=== PATIENT | male | born 1995 ===

== ENCOUNTER 2017-07-26 10:16 | Emergency (ER) | payer SELFPAY ==
[2017-07-26 10:31] VITALS: RESP 18; O2SAT 98
[2017-07-26] MEDS ORDERED: Sodium Chloride 0.9% 1,000 ML IV ONE (10:45)
[2017-07-26] MEDS ORDERED: Sodium Chloride 0.9% 1,000 ML ONE (10:56)
--- NOTE | 2017-07-26 10:56 | C.PDOC ---
History Of Present Illness 22 y/o male with PMhx of Kidney stones presents to ED with complaints of left flank pain and intermittent fever for 3 days. Patient recently [place] in [place] and came to ED with concerns of having another kidney stone. Patient denies dysuria, hematuria, abdominal pain or any other complaints at this time. Time Seen by Provider: 07/26/17 10:37 Chief Complaint (Nursing): Abdominal Pain History Per: Patient History/Exam Limitations: no limitations Onset/Duration Of Symptoms: Days Current Symptoms Are (Timing): Still Present Past Medical History Reviewed: Historical Data, Nursing Documentation, Vital Signs Vital Signs: Last Vital Signs Temp 98.8 F 07/26/17 12:45 Pulse 84 07/26/17 12:45 Resp 18 07/26/17 12:45 BP 126/70 07/26/17 12:45 Pulse Ox 98 07/26/17 12:48 - Medical History PMH: Kidney Stones Surgical History: No Surg Hx Family History: States: No Known Family Hx - Social History Hx Alcohol Use: No Hx Substance Use: No - Immunization History Hx Tetanus Toxoid Vaccination: No Hx Influenza Vaccination: Yes Hx Pneumococcal Vaccination: No Review Of Systems Constitutional: Positive for: Fever. Negative for: Chills Gastrointestinal: Negative for: Nausea, Vomiting, Abdominal Pain Musculoskeletal: Positive for: Other (Flank pain). Negative for: Back Pain Skin: Negative for: Rash Neurological: Negative for: Weakness, Numbness Physical Exam - Physical Exam Appears: Non-toxic, No Acute Distress Skin: Normal Color, Warm, Dry, No Rash Head: Atraumatic, Normacephalic Eye(s): bilateral: Normal Inspection Oral Mucosa: Moist Neck: Normal ROM, Supple Cardiovascular: Rhythm Regular Respiratory: Normal Breath Sounds, No Rales, No Rhonchi, No Wheezing Gastrointestinal/Abdominal: Soft, No Tenderness, No Guarding, No Rebound Back: CVA Tenderness (left), No Paraspinal Tenderness Extremity: Normal ROM, Capillary Refill (<2 seconds) Neurological/Psych: Oriented x3 ED Course And Treatment - Laboratory Results Result Diagrams: 07/26/17 11:01 07/26/17 11:01 Lab Interpretation: No Acute Changes O2 Sat by Pulse Oximetry: 98 (RA) Pulse Ox Interpretation: Normal - CT Scan/US No standard instances Other Rad Studies (CT/US): Read By Radiologist, Radiology Report Reviewed CT/US Interpretation: FINDINGS: There is limited evaluation of the solid organs without the administration of IV contrast. LOWER THORAX: No visible consolidation, pleural effusion, or pneumothorax. LIVER: Unremarkable unenhanced appearance. GALLBLADDER AND BILE DUCTS: Unremarkable unenhanced appearance. PANCREAS: Unremarkable unenhanced appearance. SPLEEN: Unremarkable unenhanced appearance. ADRENALS: Unremarkable unenhanced appearance. KIDNEYS AND URETERS: No hydronephrosis or obstructing renal calculus. Punctate nonobstructing bilateral renal calculi. BLADDER: The urinary bladder appears unremarkable. REPRODUCTIVE: Unremarkable. APPENDIX: The appendix is not clearly identified. No secondary signs of acute appendicitis. BOWEL: The stomach is nondistended. Lack of oral contrast limits evaluation for bowel pathology. The bowel loops appear within normal limits of caliber without evidence of intestinal obstruction. Moderate constipation. PERITONEUM: No significant free fluid. No definite free air. LYMPH NODES: No bulky lymphadenopathy identified. VASCULATURE: No aortic aneurysm. BONES: No acute osseous abnormality is detected. OTHER FINDINGS: None. IMPRESSION: Bilateral punctate nonobstructing renal calculi. No hydronephrosis or obstructing renal calculus identified. Moderate constipation. Progress Note: Treated with ZIVF NSS and toradol. On re-evaluation abdomen soft in no distress. Instructed to follow up with urology for further evaluation. Discharged in stable condition Reassessment Condition: Improved Medical Decision Making Medical Decision Making: Plan: CT abdomen/pelvis, Blood work, UA, Toradol ordered Disposition Counseled Patient/Family Regarding: Studies Performed, Diagnosis, Need For Followup, Rx Given - Disposition Referrals: [facility] [Outside] [facility] [employer] [facility] [Outside] Luz Elena Hernandez MD [Staff Provider] - Disposition: HOME/ ROUTINE Disposition Time: 12:50 Condition: STABLE Prescriptions: Naproxen [Naprosyn] 1 tab PO BID PRN #25 tab PRN Reason: Pain Instructions: Acute Hematuria (ED) Forms: [facility] (South African), Work Excuse - POA Present On Arrival: None - Clinical Impression Clinical Impression: Flank pain - 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 - Scribe Statement The provider has reviewed the documentation as recorded by the Rica Eduardo All medical record entries made by the Rica were at my direction and personally dictated by me. I have reviewed the chart and agree that the record accurately reflects my personal performance of the history, physical exam, medical decision making, and the department course for this patient. I have also personally directed, reviewed, and agree with the discharge instructions and disposition.
[2017-07-26 11:07] LABS: BASO % 0.3 % (0.0-2.0); EOS # 0.2 K/uL (0.0-0.7); EOS % 0.9 % (0.0-4.0); HEMOGLOBIN 16.5 g/dL (12.0-18.0); LYMPH # 0.9 K/uL (1.0-4.3); LYMPH % 5.2 % (20.0-40.0); MEAN CORPUSCULAR HEMOGLOBIN 30.2 pg (27.0-31.0); MEAN CORPUSCULAR HGB CONC 33.6 g/dL (33.0-37.0); MEAN PLATELET VOLUME 9.6 fL (7.2-11.7); MONO # 1.2 K/uL (0.0-0.8); MONO % 6.8 % (0.0-10.0); NEUT # 14.7 K/uL (1.8-7.0); NEUT % 86.8 % (50.0-75.0); PLATELET COUNT 208 K/uL (130-400); RBC 5.48 Mil/uL (4.40-5.90); RED CELL DISTRIBUTION WIDTH 14.1 % (11.5-14.5); WHITE BLOOD COUNT 16.9 K/uL (4.8-10.8)
[2017-07-26 11:11] LABS: URINE BACTERIA RARE (<OCC); URINE BILIRUBIN NEGATIVE (NEGATIVE); URINE BLOOD 3+ (NEGATIVE); URINE CLARITY Hazy (Clear); URINE COLOR Yellow (YELLOW); URINE GLUCOSE (UA) NORMAL (Normal); URINE LEUKOCYTE ESTERASE NEG Leu/uL (Negative); URINE NITRATE NEGATIVE (NEGATIVE); URINE PROTEIN 1+ mg/dL (NEGATIVE)
[2017-07-26 11:17] LABS: ALB/GLOB RATIO 1.4 (1.0-2.1); ALBUMIN 4.7 g/dL (3.5-5.0); ALT/SGPT 20 U/L (21-72); AST/SGOT 21 U/L (17-59); BLOOD UREA NITROGEN 11 mg/dL (9-20); CALCIUM 8.7 mg/dl (8.6-10.4); GFR AFRICAN-AMERICAN > 60; GFR NON-AFRICAN AMERICAN > 60
[2017-07-26 12:24] LABS: BANDS 1 % (0-2); EOSINOPHIL 1 % (0-4); LYMPHOCYTE 5 % (20-40); MONOCYTE 8 % (0-10); NEUTROPHIL 85 % (50-75); PLATELET ESTIMATE NORMAL (NORMAL); TOTAL CELLS COUNTED 100
--- NOTE | 2017-07-26 12:29 | CT ---
PROCEDURE: CT Abdomen and Pelvis without Oral or IV contrast. HISTORY: Pain COMPARISON: None available TECHNIQUE: Contiguous axial images of the abdomen and pelvis. No oral or IV contrast administered. Coronal and Sagittal reformats generated and reviewed. Radiation dose: Total exam DLP = 311.06 mGy-cm. This CT exam was performed using one or more of the following dose reduction techniques: Automated exposure control, adjustment of the mA and/or kV according to patient size, and/or use of iterative reconstruction technique. FINDINGS: There is limited evaluation of the solid organs without the administration of IV contrast. LOWER THORAX: No visible consolidation, pleural effusion, or pneumothorax. LIVER: Unremarkable unenhanced appearance. GALLBLADDER AND BILE DUCTS: Unremarkable unenhanced appearance. PANCREAS: Unremarkable unenhanced appearance. SPLEEN: Unremarkable unenhanced appearance. ADRENALS: Unremarkable unenhanced appearance. KIDNEYS AND URETERS: No hydronephrosis or obstructing renal calculus. Punctate nonobstructing bilateral renal calculi. BLADDER: The urinary bladder appears unremarkable. REPRODUCTIVE: Unremarkable. APPENDIX: The appendix is not clearly identified. No secondary signs of acute appendicitis. BOWEL: The stomach is nondistended. Lack of oral contrast limits evaluation for bowel pathology. The bowel loops appear within normal limits of caliber without evidence of intestinal obstruction. Moderate constipation. PERITONEUM: No significant free fluid. No definite free air. LYMPH NODES: No bulky lymphadenopathy identified. VASCULATURE: No aortic aneurysm. BONES: No acute osseous abnormality is detected. OTHER FINDINGS: None. IMPRESSION: Bilateral punctate nonobstructing renal calculi. No hydronephrosis or obstructing renal calculus identified. Moderate constipation. Additional findings as above.
[2017-07-26 12:46] VITALS: BP 126/70; PULSE 84; TEMP 98.8
== END 2017-07-26 13:07 | disposition home or self-care (01) ==
LOC: C.ER 10:16
DX: R10.9 Unspecified abdominal pain (principal)
CPT/HCPCS: 74176; 80053; 81001; 85025; 87086; 96361; 96374; 99285; J1885; J7040

== ENCOUNTER 2018-05-14 19:34 | Emergency (ER) | payer SELFPAY ==
[2018-05-14 19:43] VITALS: BMI 27.3
[2018-05-14 19:46] VITALS: BP 133/76; PULSE 99; RESP 20; TEMP 98.4; O2SAT 99
--- NOTE | 2018-05-14 20:06 | C.PDOC ---
Time Seen by Provider: 05/14/18 19:49 Chief Complaint (Nursing): Abnormal Skin Integrity Past Medical History Vital Signs: Last Vital Signs Temp 98.4 F 05/14/18 19:46 Pulse 99 H 05/14/18 19:46 Resp 20 05/14/18 19:46 BP 133/76 05/14/18 19:46 Pulse Ox 99 05/14/18 19:46 - Medical History PMH: Kidney Stones - Social History Hx Alcohol Use: No Hx Substance Use: No - Immunization History Hx Tetanus Toxoid Vaccination: No Hx Influenza Vaccination: No Hx Pneumococcal Vaccination: No ED Course And Treatment O2 Sat by Pulse Oximetry: 99 Disposition - Disposition
--- NOTE | 2018-05-14 20:06 | C.PDOC ---
History Of Present Illness 23 y/o male presents to the ED for evaluation of a hand laceration sustained 1 hour prior to arrival. While at home taking out trash, patient tripped and fell onto a garbage bag that had glass, sustaining a large laceration to the dorsal left hand. Patient is right hand dominant. He reports being unable to extend the 2nd, 3rd, and 4th digits. Also complains of slight numbness. Time Seen by Provider: 05/14/18 19:49 Chief Complaint (Nursing): Abnormal Skin Integrity History Per: Patient History/Exam Limitations: no limitations Onset/Duration Of Symptoms: Hrs (x1) Current Symptoms Are (Timing): Still Present Location Of Injury: Left: Hand Past Medical History Reviewed: Historical Data, Nursing Documentation, Vital Signs Vital Signs: Last Vital Signs Temp 98.4 F 05/14/18 19:46 Pulse 99 H 05/14/18 19:46 Resp 20 05/14/18 19:46 BP 133/76 05/14/18 19:46 Pulse Ox 99 05/14/18 19:46 - Medical History PMH: No Chronic Diseases, Kidney Stones Other Surgeries: Tendon surgery in the LEft hand Family History: States: No Known Family Hx - Social History Hx Alcohol Use: No Hx Substance Use: No - Immunization History Hx Tetanus Toxoid Vaccination: No Hx Influenza Vaccination: No Hx Pneumococcal Vaccination: No Review Of Systems Except As Marked, All Systems Reviewed And Found Negative. Constitutional: Negative for: Fever Musculoskeletal: Positive for: Hand Pain Skin: Positive for: Lesions (to dorsal left hand) Neurological: Positive for: Weakness (difficulty moving left digits), Numbness. Negative for: Other (tingling) Physical Exam - Physical Exam Appears: Non-toxic, No Acute Distress Skin: Warm, Dry, No Rash Head: Atraumatic, Normacephalic Eye(s): bilateral: Normal Inspection, PERRL, EOMI Chest: Symmetrical Respiratory: No Accessory Muscle Use Extremity: No Normal ROM (Unable to extend the 2nd, 3rd, 4th left digits; Full flexion and extension of the left thumb), Capillary Refill (less than 2 sec), No Swelling, Other (2 x 8 cm large laceration to the dorsum of left hand) Pulses: Left Radial: Normal, Right Radial: Normal Neurological/Psych: Oriented x3, No Normal Sensation (Patient reports slight numbness to left hand) Gait: Steady ED Course And Treatment O2 Sat by Pulse Oximetry: 99 (RA) Pulse Ox Interpretation: Normal Laceration - Laceration Repair left Hand Wound Length (In cm): 10 Description Of Wound: Irregular Wound Cleansed With: Betadine, Sterile Saline Anesthesia: Lidocaine 1%, With Epi Wound Examination: Irrigated With Saline, No FB With Wound Exploration Wound Closure: Suture (12) Suture Technique And Material Used: Nylon Wound Complexity: Simple Medical Decision Making Medical Decision Making: Plan: 8:05pm Spoke with Dr. Pizarro, hand on-call, who recommends the laceration be repaired here in the ED, and patient can follow up in his office tomorrow for further evaluation and repair. Requests patient be placed in a volar splint. X-ray taken of left hand. No fracture or foreign bodies seen. The wound was irrigated with > 1000cc of pressurized sterile saline and betadine. Lido 2% ordered for laceration repair. Tetanus is up to date. Disposition - Disposition Referrals: Avinash Pizarro MD [Staff Provider] - Disposition: HOME/ ROUTINE Disposition Time: 20:30 Condition: STABLE Additional Instructions: YOU MUST FOLLOW UP WITH THE HAND SURGEON WITHIN 1-2 DAYS. RETURN TO WORSENED. 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 - Scribe Statement The provider has reviewed the documentation as recorded by the Scribe (Jerilyn Zazueta) All medical record entries made by the Scribe were at my direction and personally dictated by me. I have reviewed the chart and agree that the record accurately reflects my personal performance of the history, physical exam, medical decision making, and the department course for this patient. I have also personally directed, reviewed, and agree with the discharge instructions and disposition.
[2018-05-14] MEDS ORDERED: Epinephrine /Lidocaine HCL 1:100,000/2% 30 ml INJ STA (20:11)
--- NOTE | 2018-05-15 08:27 | RAD ---
PROCEDURE: Left Hand Radiographs. HISTORY: injury, lac to the dorsal hand, r/o foreign body COMPARISON: None. FINDINGS: BONES: Normal. No fracture. JOINTS: Normal. No osteoarthritic changes. SOFT TISSUES: Normal. OTHER FINDINGS: None. IMPRESSION: No evidence of radiopaque foreign body. No fracture.
== END 2018-05-14 21:57 | disposition home or self-care (01) ==
LOC: C.ER 19:34
DX: S61.412A Laceration without foreign body of left hand, initial encounter (principal); S66.822A Laceration of other specified muscles, fascia and tendons at wrist and hand level, left hand, initial encounter; W01.110A Fall on same level from slipping, tripping and stumbling with subsequent striking against sharp glass, initial encounter; Y92.89 Other specified places as the place of occurrence of the external cause